=== PATIENT | female | born 1970 | race African-American/Black ===

== ENCOUNTER 2016-08-11 14:15 | Emergency (ER) | payer OTHER ==
[~2016-08-11] VITALS: Ht 170.2 cm; Wt 91.6 kg
[~2016-08-11 14:15] MED LIST: AZITHROMYCIN 2250 MG PO; BENADRYL25 MG; NORCO 5-325 TA1 EACH PO; PREDNISONE 20 M20 MG PO; PROVENTIL HFA6.7 G1 INH; TESSALON PERLE100 MG PO; TUSSIONEX PENN473 ML PO; VENTOLIN HFA 1818 GM INH; ZPAK PO
[2016-08-11] MEDS ORDERED: PROVENTIL HFA6.7 G1 INH (15:20)
[2016-08-11] MEDS ORDERED: ZPAK PO (15:20)
[2016-08-11] MEDS ORDERED: TESSALON PERLE100 MG PO (15:29)
[2016-08-11 15:40] VITALS: BP 132/79
== END 2016-08-11 15:40 | disposition home or self-care (01) ==
LOC: ER 14:15
DX: J40 Bronchitis, not specified as acute or chronic (principal); R51 Headache; Z88.0 Allergy status to penicillin; Z88.5 Allergy status to narcotic agent

== ENCOUNTER 2018-11-28 14:11 | Emergency (ER) | payer OTHER ==
[~2018-11-28] VITALS: Ht 170.2 cm; Wt 90.3 kg
[2018-11-28 14:13] VITALS: BP 160/98
[2018-11-28] MEDS ORDERED: TESSALON PERLE100 MG PO (14:56)
[2018-11-28] MEDS ORDERED: ZYRTEC10 M2 PO (14:56)
[2018-11-28] MEDS ORDERED: DOXYCYCLINE 10100 MG PO (14:56)
== END 2018-11-28 15:10 | disposition home or self-care (01) ==
LOC: ER 14:11
DX: J18.9 Pneumonia, unspecified organism (principal); E11.9 Type 2 diabetes mellitus without complications; Z88.5 Allergy status to narcotic agent; Z88.0 Allergy status to penicillin

== ENCOUNTER 2019-04-10 10:13 | Emergency (ER) | payer OTHER ==
[~2019-04-10] VITALS: Ht 170.2 cm; Wt 84.8 kg
[~2019-04-10 10:13] MED LIST changes: +DOXYCYCLINE 10100 MG PO; +ZYRTEC10 M2 PO
[2019-04-10] MEDS ORDERED: GLUCOPHAGE XR500 MG PO (10:25)
[2019-04-10 12:43] VITALS: BP 140/107
== END 2019-04-10 11:05 | disposition home or self-care (01) ==
LOC: ER 10:13
DX: J32.0 Chronic maxillary sinusitis (principal); Z88.5 Allergy status to narcotic agent; Z88.0 Allergy status to penicillin; Z98.890 Other specified postprocedural states

== ENCOUNTER 2019-07-28 12:02 | Emergency (ER) | payer BC ==
[~2019-07-28] VITALS: Ht 182.9 cm; Wt 104.3 kg
[~2019-07-28 12:02] MED LIST changes: +GLUCOPHAGE XR500 MG PO
[2019-07-28] MEDS ORDERED: MOBIC7.5 MG PO (13:35)
[2019-07-28 13:52] VITALS: BP 145/78
== END 2019-07-28 13:52 | disposition home or self-care (01) ==
LOC: ER 12:02
DX: S86.811A Strain of other muscle(s) and tendon(s) at lower leg level, right leg, initial encounter (principal); M71.21 Synovial cyst of popliteal space [Baker], right knee; M25.461 Effusion, right knee; Z98.51 Tubal ligation status; Z88.0 Allergy status to penicillin; Z88.6 Allergy status to analgesic agent; W01.0XXA Fall on same level from slipping, tripping and stumbling without subsequent striking against object, initial encounter; Y93.89 Activity, other specified; Y92.89 Other specified places as the place of occurrence of the external cause; Y99.8 Other external cause status

== ENCOUNTER 2019-09-03 21:30 | Emergency (ER) | payer OTHER ==
[~2019-09-03] VITALS: Ht 170.2 cm; Wt 88.5 kg
[~2019-09-03 21:30] MED LIST changes: +MOBIC7.5 MG PO
[2019-09-03] MEDS ORDERED: LISINOPRIL10 MG PO (21:38)
[2019-09-03 22:30] LABS: HEMATOCRIT 39.4 % (37.0-47.0); HEMOGLOBIN 12.9 gm/dL (12.0-15.0); MCH 28.2 pg (26.0-34.0); MCHC 32.8 g/dL (28.0-37.0); RBC 4.58 mil/uL (4.20-5.00); RDW 14.6 % (10.5-14.5); WBC 7.4 thou/uL (4.0-11.0)
[2019-09-03 22:36] LABS: ANION GAP 8 mmol/L (7-16); BUN 8 mg/dL (7-18); CHLORIDE 101 mmol/L (98-107); CO2 26 mmol/L (21-32); CREATININE 0.8 mg/dL (0.6-1.0); GLUCOSE 145 mg/dL (74-106); POTASSIUM 3.4 mmol/L (3.5-5.1); SODIUM 135 mmol/L (136-145)
[2019-09-03 22:45] LABS: MAGNESIUM 1.9 mg/dL (1.8-2.4); TROPONIN-I <0.06 ng/mL (<0.06)
[2019-09-04 00:21] VITALS: BP 154/99
[2019-09-04] MEDS ORDERED: ZESTRIL20 MG PO (00:32)
[2019-09-04] MEDS ORDERED: XANAX 0.25 MG0.25 MG PO (00:32)
--- NOTE | 2019-09-04 07:59 | EKG ---
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
== END 2019-09-04 00:43 | disposition home or self-care (01) ==
LOC: ER 21:30
PROVIDERS: Emergency Medicine Emergency Medical Services
DX: I10 Essential (primary) hypertension (principal); E87.6 Hypokalemia; Z98.51 Tubal ligation status; Z88.0 Allergy status to penicillin; Z88.6 Allergy status to analgesic agent

== ENCOUNTER 2019-09-06 15:58 | Emergency (ER) | payer OTHER ==
[~2019-09-06] VITALS: Ht 170.2 cm; Wt 88.5 kg
[~2019-09-06 15:58] MED LIST changes: +LISINOPRIL10 MG PO; +XANAX 0.25 MG0.25 MG PO; +ZESTRIL20 MG PO
[2019-09-06] MEDS ORDERED: SERTRALINE HCL50 MG PO (18:17)
[2019-09-06] MEDS ORDERED: TAMIFLU75 MG PO (19:34)
[2019-09-06 20:38] VITALS: BP 129/85
== END 2019-09-06 20:39 | disposition home or self-care (01) ==
LOC: ER 15:58
DX: J11.1 Influenza due to unidentified influenza virus with other respiratory manifestations (principal); I10 Essential (primary) hypertension; F32.9 Major depressive disorder, single episode, unspecified; E11.9 Type 2 diabetes mellitus without complications; Z98.890 Other specified postprocedural states; Z88.5 Allergy status to narcotic agent; Z88.0 Allergy status to penicillin

== ENCOUNTER 2020-03-30 18:12 | Emergency (ER) | payer OTHER ==
[~2020-03-30] VITALS: Ht 170.2 cm; Wt 88.5 kg
[~2020-03-30 18:12] MED LIST changes: +SERTRALINE HCL50 MG PO; +TAMIFLU75 MG PO
[2020-03-30 18:24] VITALS: BP 139/99
[2020-03-30] MEDS ORDERED: FLEXERIL PO (18:34)
[2020-03-30] MEDS ORDERED: PROTONIX 20 MG20 MG PO (18:35)
[2020-03-30] MEDS ORDERED: NORFLEX100 MG PO (18:49)
[2020-03-30] MEDS ORDERED: NAPROSYN500 MG PO (18:49)
--- NOTE | 2020-04-01 08:51 | EKG ---
[facility] [place] [address] ELECTROCARDIOGRAM REPORT Name: STANLEY MILLER Room #: DEP [facility]#: [id number] Admission: 03/30/20 Attend Phys: Discharge: 03/30/20 Date of : 74 Report #: [id number] THIS REPORT FOR: cc: LIZZIE - No family physician/PCP FAM - No family physician/PCP Alex Brown MD 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: [facility] : 1970 Requested By: Tonay Marcelino Order Number: [id number] MD: Alex Brown Measurements Intervals [place] Rate: 105 P: 61 MA: 157 QRS: 51 QRSD: 93 T: -2 QT: 345 QTc: 457 Interpretive Statements Sinus tachycardia Borderline T abnormalities, inferior leads Compared to ECG 09/03/2019 22:37:57 T-wave abnormality now present Electronically Signed On 04-01-2020 8:51:08 CDT by Alex Brown [email or web address] <ELECTRONICALLY SIGNED> By: Alex Brown MD, FACC 04/01/20 0851 [id number] Alex Brown MD, [facility] /EPI
== END 2020-03-30 19:11 | disposition home or self-care (01) ==
LOC: ER 18:12
DX: M54.12 Radiculopathy, cervical region (principal); I10 Essential (primary) hypertension; E11.9 Type 2 diabetes mellitus without complications; Z79.899 Other long term (current) drug therapy; Z88.5 Allergy status to narcotic agent; Z88.0 Allergy status to penicillin

== ENCOUNTER 2021-01-31 14:11 | Emergency (ER) | payer OTHER ==
[~2021-01-31] VITALS: Ht 167.6 cm; Wt 74.8 kg
[~2021-01-31 14:11] MED LIST changes: +FLEXERIL PO; +NAPROSYN500 MG PO; +NORFLEX100 MG PO; +PROTONIX 20 MG20 MG PO
[2021-01-31] MEDS ORDERED: PAROXETINE HCL10 MG PO (14:37)
[2021-01-31] MEDS ORDERED: NORVASC5 MG PO (14:37)
[2021-01-31] MEDS ORDERED: GLIMEPIRIDE1 MG PO (14:37)
[2021-01-31] MEDS ORDERED: PREDNISONE 20 M20 M1 PO (15:17)
[2021-01-31 15:54] VITALS: BP 131/94
== END 2021-01-31 15:55 | disposition home or self-care (01) ==
LOC: ER 14:11
DX: S40.862A Insect bite (nonvenomous) of left upper arm, initial encounter (principal); E11.9 Type 2 diabetes mellitus without complications; I10 Essential (primary) hypertension; Z98.890 Other specified postprocedural states; Z98.51 Tubal ligation status; W57.XXXA Bitten or stung by nonvenomous insect and other nonvenomous arthropods, initial encounter; Y93.89 Activity, other specified; Y92.89 Other specified places as the place of occurrence of the external cause; Y99.8 Other external cause status